=== PATIENT | female | born 1970 | race African-American/Black ===

== ENCOUNTER 2016-05-26 08:26 | Emergency (ER) | payer OTHER ==
[~2016-05-26 08:26] MED LIST: BAYER CHEWABLE81 MG PO; HYDROCODONE-APA1 TAB PO; LISINOPRIL-HCTZ1 T13 PO; MULTIPLE VITAMI1 TA1 PO; OMEPRAZOLE40 MG PO; STERAPRED 5MG 125 MG PO
[2016-05-26 09:05] LABS: APPEARANCE HAZY (CLEAR); BILIRUBIN NEGATIVE (NEGATIVE); COLOR YELLOW (YELLOW); GLUCOSE NEGATIVE (NEGATIVE); KETONE NEGATIVE (NEGATIVE); NITRITE NEGATIVE (NEGATIVE); PROTEIN NEGATIVE (NEGATIVE); UROBILINOGEN NORMAL (NORMAL)
[2016-05-26 09:06] LABS: LEUKOCYTE ESTERASE TRACE (NEGATIVE); RED CELLS - URINE 0-5 /hpf (0-5); WHITE CELLS - URINE 0-5 /hpf (0-5)
[2016-05-26 09:07] LABS: BACTERIA FEW /hpf (NONE SEEN)
== END 2016-05-26 09:28 | disposition home or self-care (01) ==
LOC: D.ER 08:26
PROVIDERS: Emergency Medicine
DX: M54.9 Dorsalgia, unspecified (principal); D57.1 Sickle-cell disease without crisis; I10 Essential (primary) hypertension

== ENCOUNTER 2016-06-27 16:49 | Emergency (ER) | payer OTHER | END 2016-06-27 21:25 | disposition home or self-care (01) | LOC: D.ER 16:49 | DX: S29.012A Strain of muscle and tendon of back wall of thorax, initial encounter (principal); W19.XXXA Unspecified fall, initial encounter; Y93.89 Activity, other specified; Y92.017 Garden or yard in single-family (private) house as the place of occurrence of the external cause; D57.1 Sickle-cell disease without crisis; I10 Essential (primary) hypertension ==

== ENCOUNTER 2016-12-09 14:58 | Emergency (ER) | payer OTHER ==
[2016-12-09 15:22] LABS: APPEARANCE HAZY (CLEAR); BILIRUBIN NEGATIVE (NEGATIVE); COLOR DK YELLOW (YELLOW); GLUCOSE NEGATIVE (NEGATIVE); KETONE NEGATIVE (NEGATIVE); LEUKOCYTE ESTERASE TRACE (NEGATIVE); NITRITE NEGATIVE (NEGATIVE); PROTEIN NEGATIVE (NEGATIVE); SPECIFIC GRAVITY 1.015 (1.005-1.020)
[2016-12-09 15:28] LABS: BACTERIA MODERATE /hpf (NONE SEEN); EPITHELIAL CELLS 0-5 /hpf (0-5); HYALINE CAST RARE /lpf (NONE SEEN); MUCUS >1+ /lpf (NONE SEEN); RED CELLS - URINE 0-5 /hpf (0-5); WHITE CELLS - URINE 0-5 /hpf (0-5)
[2016-12-09 16:16] LABS: BASOPHILS 0.2 % (0-2); EOSINOPHILS 1.7 % (0-7); HEMATOCRIT 35.2 % (36.0-48.0); IMMATURE GRANULOCYTES 0.3 % (0-5); LYMPHOCYTES 27.4 % (15-50); MCH 22.1 pg (26.0-34.0); MCHC 31.3 g/dL (31.0-37.0); MCV 70.7 fL (80.0-100.0); MONOCYTES 5.5 % (2-11); NEUTROPHILS 64.9 % (40-80); PLATELET COUNT 227 10x3/uL (130-400); RBC 4.98 10x6/uL (4.00-5.40); RDW 16.9 % (11.5-14.5); WBC 5.8 10x3/uL (4.8-10.8)
[2016-12-09 16:36] LABS: ALBUMIN 3.5 g/dL (3.4-5.0); ANION GAP 7.8 mmol/L (8-16); BILIRUBIN - TOTAL 0.24 mg/dL (0.2-1.3); CALCIUM 8.6 mg/dL (8.5-10.1); CARBON DIOXIDE 26.9 mmol/L (21.0-32.0); POTASSIUM - SERUM 3.7 mmol/L (3.5-5.1); PROTEIN - SERUM 7.5 g/dL (6.4-8.2)
== END 2016-12-09 18:25 | disposition home or self-care (01) ==
LOC: D.ER 14:58
PROVIDERS: Emergency Medicine; Physician Assistant Medical
DX: N39.0 Urinary tract infection, site not specified (principal); I10 Essential (primary) hypertension; D57.1 Sickle-cell disease without crisis; R10.9 Unspecified abdominal pain; R11.0 Nausea

== ENCOUNTER 2016-12-25 10:17 | Emergency (ER) | payer OTHER | END 2016-12-25 12:00 | disposition home or self-care (01) | LOC: D.ER 10:17 | DX: M54.5 Low back pain (principal); M54.10 Radiculopathy, site unspecified; I10 Essential (primary) hypertension ==

== ENCOUNTER 2017-02-22 08:37 | Emergency (ER) | payer OTHER | END 2017-02-22 11:15 | disposition home or self-care (01) | LOC: D.ER 08:37 | DX: M54.16 Radiculopathy, lumbar region (principal); I10 Essential (primary) hypertension; D57.1 Sickle-cell disease without crisis ==

== ENCOUNTER 2017-03-25 08:45 | Emergency (ER) | payer OTHER ==
[2017-03-25 09:32] LABS: BASOPHILS 0.1 % (0-2); EOSINOPHILS 1.3 % (0-7); HEMATOCRIT 35.1 % (36.0-48.0); HEMOGLOBIN 11.4 g/dL (12-16); IMMATURE GRANULOCYTES 0.6 % (0-5); LYMPHOCYTES 21.6 % (15-50); MCH 22.3 pg (26.0-34.0); MCHC 32.5 g/dL (31.0-37.0); MCV 68.6 fL (80.0-100.0); MONOCYTES 7.8 % (2-11); NEUTROPHILS 68.6 % (40-80); PLATELET COUNT 248 10x3/uL (130-400); RBC 5.12 10x6/uL (4.00-5.40); RDW 16.9 % (11.5-14.5); WBC 6.7 10x3/uL (4.8-10.8)
[2017-03-25 09:55] LABS: ALBUMIN 3.5 g/dL (3.4-5.0); ALKALINE PHOSPHATASE 167 U/L (46-116); ALT (SGPT) 20 U/L (10-68); BILIRUBIN - TOTAL 0.23 mg/dL (0.2-1.3); CALC OSMOLALITY 273 mosm/kg (275-300); CARBON DIOXIDE 26.1 mmol/L (21.0-32.0); CHLORIDE - SERUM 103 mmol/L (98-107); CREATININE - SERUM 0.9 mg/dL (0.6-1.3); GLUCOSE 76 mg/dL (74-106); POTASSIUM - SERUM 3.5 mmol/L (3.5-5.1); PROTEIN - SERUM 7.9 g/dL (6.4-8.2); SODIUM 138 mmol/L (136-145); UREA NITROGEN 10 mg/dL (7-18); eGFR NON AFRICAN AMERICAN 71 mL/min (90-120)
[2017-03-25 10:07] LABS: CHOL - HDL RATIO 2.9 ratio (2.3-4.1); CHOLESTEROL, TOTAL 167 mg/dL (0-200); CKMB 0.4 U/L (0.0-3.6); CREATINE KINASE 103 UL (21-215); HDL CHOLESTEROL 57 mg/dL (32-96); LDL CHOLESTEROL 98 mg/dL (0-100); LDL-HDL RATIO 1.7 ratio (1.5-3.5); PRO BNP 18 pg/mL (0-125); TRIGLYCERIDE 62 mg/dL (30-200); TROPONIN-I < 0.017 ng/mL (0.000-0.060)
== END 2017-03-25 16:00 | disposition home or self-care (01) ==
LOC: D.ER 08:45
PROVIDERS: Emergency Medicine
DX: R07.9 Chest pain, unspecified (principal); I10 Essential (primary) hypertension; D57.1 Sickle-cell disease without crisis